=== PATIENT | male | born 1950 ===

== ENCOUNTER 2016-05-11 15:39 | Outpatient (CLI) | payer MEDICARE, BC ==
[2016-05-11 16:40] LABS: Clarity Clear (Clear); Leukocyte Negative (Negative); Nitrite Negative (Negative); Protein, Urine (Dipstick) 100 mg/dL (Neg-Trace)
[2016-05-11 16:41] LABS: Bacteria/HPF Rare-Few HPF (None Seen); Bilirubin Small (Negative); Blood, Urine Large (Negative); Icto Negative (Negative); Squamous Epithelial 0-3 HPF (0-3); WBC/HPF 0-3 HPF (0-3)
[2016-05-11 16:42] LABS: Glucose, Urine (Dipstick) Negative (Negative); Specific Gravity, Urine 1.025 (1.005-1.030)
== END 2016-05-11 15:40 | disposition home or self-care (01) ==
LOC: MADLAB 15:39
PROVIDERS: ATTEND Internal Medicine Hepatology
DX: K72.90 Hepatic failure, unspecified without coma (principal)
CPT/HCPCS: 81001